=== PATIENT | female | born 1945 | race Caucasian/White ===

== ENCOUNTER 2017-02-22 14:40 | Emergency (ER) | payer MEDICARE, OTHER ==
--- NOTE | ~2017-02-22 | CR156 ---
[facility] A Service of [facility] [place] [facility] RADIOLOGY TEXT RESULTS PATIENT: PAYTON JIMENEZ LOCATION: [facility] : 47 UNIT #: [id number] AGE: [address]: Sharonda Samayoa MD SEX: F ORDER DR: [id number] [facility] [address] [place], [place] [address] [id number] P MR#: [id number] Acc #: [id number] NAME: PAYTON JIMENEZ : 1945 SEX: F STUDY DATE/TIME: 02/22/2017 15:12 UNIT: [facility] ROOM: STUDY DESCRIPTION: CR Humerus Min 2 View Lt Attending Physician: Sharonda Samayoa M.D. Ordering Physician: [facility] MEDICAL IMAGING REPORT This report is preliminary unless electronic signature is present EXAM Left humerus 2 views HISTORY Fell today. Arm pain. FINDINGS 2 views are submitted. Re-demonstrated is a comminuted fracture of the surgical neck and humeral head. The shaft of the humerus and distal humerus are intact. CONCLUSION Comminuted fractures of the humeral head and surgical neck. Dictated by... Jay Lee M.D. THIS IS AN ELECTRONICALLY VERIFIED REPORT Jay Lee M.D. at 02/26/2017 4:50 PM BEATRIS/lidia TD: 02/22/2017 18:34 JOB #: [id number] MEDICAL IMAGING REPORT Page 1 of 1 COPY
--- NOTE | ~2017-02-22 | CR229 ---
[facility] A Service of [facility] & [facility] RADIOLOGY TEXT RESULTS PATIENT: PAYTON JIMENEZ LOCATION: [facility] : 47 UNIT #: [id number] AGE: [address]: Sharonda Samayoa MD SEX: F ORDER DR: [id number] [facility] [address]. [place], [place] [address] [id number] P MR#: [id number] Acc #: [id number] NAME: PAYTON JIMENEZ : 1945 SEX: F STUDY DATE/TIME: 02/22/2017 15:11 UNIT: [facility] ROOM: STUDY DESCRIPTION: CR Shoulder Min 2 View Lt Attending Physician: Sharonda Samayoa M.D. Ordering Physician: [facility] MEDICAL IMAGING REPORT This report is preliminary unless electronic signature is present EXAM Left shoulder HISTORY Fell today with left shoulder pain. FINDINGS 3 views are submitted. The examination shows a comminuted fracture of the surgical neck and humeral head. Fracture passes transversely through the surgical neck. It is impacted into the humeral head. There is a fracture through the greater tuberosity. It is displaced superiorly. There is generalized osteopenia. CONCLUSION Comminuted fracture of the surgical neck and humeral head. Dictated by... Jay Lee M.D. THIS IS AN ELECTRONICALLY VERIFIED REPORT Jay Lee M.D. at 02/26/2017 4:50 PM BEATRIS/poppy TD: 02/22/2017 18:33 JOB #: [id number] MEDICAL IMAGING REPORT Page 1 of 1 COPY
== END 2017-02-22 19:02 | disposition home or self-care (01) ==
LOC: CED 14:40
DX: S42.212A Unspecified displaced fracture of surgical neck of left humerus, initial encounter for closed fracture (principal); S42.202A Unspecified fracture of upper end of left humerus, initial encounter for closed fracture; W01.0XXA Fall on same level from slipping, tripping and stumbling without subsequent striking against object, initial encounter; Y92.9 Unspecified place or not applicable; Z88.8 Allergy status to other drugs, medicaments and biological substances; E11.9 Type 2 diabetes mellitus without complications
CPT/HCPCS: 73030; 73060; 82947; 96372; 99284; J2270

== ENCOUNTER 2017-02-27 12:00 | Inpatient (IN) | payer MEDICARE, OTHER ==
--- NOTE | ~2017-02-27 | CR229 ---
[facility] A Service of [facility] RADIOLOGY TEXT RESULTS PATIENT: PAYTON JIMENEZ LOCATION: [place] [id number] : 47 UNIT #: [id number] AGE: [address]: Jesse Casillas MD SEX: F ORDER DR: [id number] [facility] [address] [place], [place] [address] [id number] I MR#: [id number] Acc #: [id number] NAME: PAYTON JIMENEZ : 1945 SEX: F STUDY DATE/TIME: 02/27/2017 20:28 UNIT: [facility] ROOM: [facility] STUDY DESCRIPTION: CR Shoulder Min 2 View Lt Attending Physician: Jesse Casillas M.D. Ordering Physician: Jesse Casillas M.D. Primary Care Physician: Andrea Villa M.D. MEDICAL IMAGING REPORT This report is preliminary unless electronic signature is present EXAM 3 views of the left shoulder, 02/27/2017 at 20:28 HISTORY Left shoulder pain. Postop shoulder replacement. COMPARISON Left shoulder radiographs, 02/26/2017 FINDINGS Left shoulder replacement changes. No periprosthetic fracture. The shoulder joint appears appropriately aligned. No AC or CC separation. Probable mild left basilar atelectasis. IMPRESSION Satisfactory postoperative appearance status post left shoulder replacement. Dictated by... Ninoska Lopez M.D. THIS IS AN ELECTRONICALLY VERIFIED REPORT Ninoska Lopez M.D. at 02/28/2017 10:06 AM CHARLENE/elina TD: 02/28/2017 08:32 JOB #: [id number] MEDICAL IMAGING REPORT Page 1 of 1 COPY
--- NOTE | ~2017-02-27 | CR72 ---
[facility] A Service of [facility] & [facility] RADIOLOGY TEXT RESULTS PATIENT: PAYTON JIMENEZ LOCATION: [address] : 47 UNIT #: [id number] AGE: [address]: Jesse Casillas MD SEX: F ORDER DR: [id number] [facility] [address] [place], [place] [address] [id number] I MR#: [id number] Acc #: [id number] NAME: PAYTON JIMENEZ : 1945 SEX: F STUDY DATE/TIME: 02/28/2017 17:13 UNIT: [facility] ROOM: [facility] STUDY DESCRIPTION: CR Chest Single View Portable Attending Physician: Jesse Casillas M.D. Ordering Physician: Ed Doctor [id number] [facility] Primary Care Physician: Andrea Villa M.D. MEDICAL IMAGING REPORT This report is preliminary unless electronic signature is present EXAM Portable chest 02/28/2017 COMPARISON None. HISTORY Postop, shortness of breath beginning yesterday. An AP view of the chest is obtained. Cardiac size is normal. There is elevation of the left hemidiaphragm with left basilar atelectasis. Postoperative changes of left shoulder arthroplasty are present. CONCLUSION 1. Mild elevation of the left hemidiaphragm with left basilar atelectasis. 2. Status post left shoulder arthroplasty. Dictated by... Jay Lee M.D. THIS IS AN ELECTRONICALLY VERIFIED REPORT Jay Lee M.D. at 03/01/2017 6:07 PM Max TD: 02/28/2017 23:24 JOB #: [id number] MEDICAL IMAGING REPORT Page 1 of 1 COPY
--- NOTE | ~2017-02-27 | OR ---
Unit #: [id number] #: [id number] Patient: PAYTON KENNEDY [id number] [address] [address] [id number] I MR#: [id number] NAME: PAYTON KENNEDY ROOM: [facility] Date of Procedure: 02/27/2017 Admission Date: 02/27/2017 Surgeon: Jesse Casillas M.D. : 1945 Attending Physician: Jesse Casillas M.D. Primary Care Physician: Andrea Villa M.D. OPERATIVE REPORT PREOPERATIVE DIAGNOSIS Left 3 versus 4-part proximal humerus fracture. POSTOPERATIVE DIAGNOSES 1. Left 3-part proximal humerus fracture. 2. Partial biceps tear. PROCEDURES PERFORMED 1. Left reverse shoulder arthroplasty. 2. Left shoulder biceps tenodesis. MEDICAL RECORDS FIELD TECHNICIAN Elaine Umana APRN, TOMAS. ANESTHESIA General with interscalene nerve block. ESTIMATED BLOOD LOSS 200 mL. COMPLICATIONS None apparent. DRAINS Medium Hemovac x1. IMPLANTS 1. DJO Surgical size 10 cemented AltiVate humeral stem with a 32, neutral humeral socket liner. 2. Size 12 cement restrictor. 3. DJO Surgical P2 baseplate with a 32, -4 glenosphere. INDICATIONS FOR PROCEDURE Ms. Kennedy is a 71-year-old female with a left 3 versus 4-part proximal humerus fracture. The greater tuberosity was comminuted into 2 or 3 fragments. The head segment was quite small and significantly impacted on the shaft. The tuberosity was displaced cephalad beneath the acromion. We discussed operative versus nonoperative treatment options. Given the displacement of her tuberosity, operative intervention was felt to be warranted. We discussed an ORIF versus an an arthroplasty. Given the small rim of bone on the head segment, there is concern about the ability to obtain sufficient fixation of the head. She elected to proceed with Unit #: [id number] #: [id number] Patient: PAYTON KENNEDY ORIF versus reverse. DESCRIPTION OF PROCEDURE The patient was identified in the preoperative holding area. The operative site was marked. A preoperative regional block was performed. Preoperative antibiotics were administered. The patient was brought to the operating room and placed supine on the operating table. General anesthetic was induced. The patient was positioned in the beach-chair position. The left upper extremity was prepped and draped in sterile fashion. A standard deltopectoral approach was performed. The cephalic vein was taken medially with the pectoralis major initially. This was later injured by retractor and was subsequently suture ligated. The subdeltoid space was developed. The fracture was identified. The sutures were placed in the subscapularis and the supra and infraspinatus tendons. Several loose fragments of greater tuberosity were removed. The main or primary tuberosity fragment was again identified and tagged with multiple FiberWire and FiberTape sutures. The lesser tuberosity did remain attach to the head segment. The head segment itself was very small thin fragment of bone. Again, fixation at this point was thought to be compromised and high risk for failure. We therefore elected to proceed with reverse shoulder replacement. The lesser tuberosity was osteotomized off the head. The bone here was extremely soft and fractured off very easily. The head was removed and the posterior aspect of the head was taken for bone graft. The canal was then prepared with a hand reamers and prepared for cementing according to the standard technique. We sized up to a size 12 cement restrictor implant for size 10 stem. Attention was then turned to the glenoid. The glenoid exposure was facilitated by the absence of the humeral head. Retractors were placed and labrum was released. We had an easy exposure to the glenoid. We drilled the centering hole and inserted the reaming tap. This was then reamed to the desired depth and we inserted the baseplate and placed 4 peripheral locking screws. A 32, -4 baseplate was inserted. Attention was turned back to the humerus. The size 10 humeral component was opened and a "black and marie" type cement technique was employed with distal cementing and the proximal bone grafting of the canal. The humeral stem was inserted and was stable and was held in position while the cement was allowed to cure. The humerus was placed in approximately 30 degrees of retroversion. The shoulder was trialed and we selected a 32 neutral humeral socket liner. This was impacted in place. The tuberosities were then repaired back to the stem according to the standard technique with tuberosity to stem sutures and tuberosity to tuberosity sutures. The arm was taken through range of motion. The shoulder was stable. The wound was irrigated with pulsatile lavage and then a subdeltoid drain placed. The wound was closed in a layered fashion with 0 Vicryl, 2-0 Vicryl, and Monocryl. Steri-Strips and sterile dressings were applied. DISPOSITION Stable to the recovery room. Dictated by... Franklyn Navarrete/caitlin Unit #: [id number] #: [id number] Patient: PAYTON KENNEDY TD: 02/28/2017 04:04 JOB #: [id number] OPERATIVE REPORT Page 1 of 1 X Jesse Casillas MD X PROCEDURE OPERATIVE NOTE
--- NOTE | ~2017-02-27 | EKG ---
PATIENT: PAYTON JIMENEZ UNIT #: [id number] Ventricular Rate: 115 BPM Atrial Rate: 115 BPM P-R Interval: 120 ms QRS Duration: 98 ms Q-T Interval: 332 ms QTC Calculation(Bezet): 459 ms P Shanks: 29 degrees Calculated R Shanks: -21 degrees Calculated T Shanks: 21 degrees Diagnosis Line: Sinus tachycardia Diagnosis Line: Otherwise normal ECG Diagnosis Line: No previous ECGs available Diagnosis Line: Confirmed by RYAN CRUZ MD ([id number]) on Diagnosis Line: 02/27/2017 2:05:23 PM INTERPRETING MD: NANCY CHRISTIANSON
--- NOTE | ~2017-02-27 | DS ---
Unit #: [id number] #: [id number] Patient: PAYTON JIMENEZ [id number] [place] [address] [facility] [facility] [place], [place] [address] [id number] I MR#: [id number] NAME: PAYTON JIMENEZ ROOM: [facility] Age: 71 Sex: F Admission Date: 02/27/2017 : 1945 Discharge Date: 03/01/2017 Attending Physician: Jesse Casillas M.D. Primary Care Physician: Andrea Villa M.D. DISCHARGE SUMMARY ADMITTING DIAGNOSIS Left proximal humerus fracture. DISCHARGE DIAGNOSES Left proximal humerus fracture status post left reverse shoulder arthroplasty. PROCEDURES PERFORMED On 02/27/2017 the patient underwent a left reverse shoulder arthroplasty for a left proximal humerus fracture. Please see operative report for further details. BRIEF HISTORY Ms. Jimenez is a 71-year-old female who sustained a 3- versus 4-part left proximal humerus fracture. Dr. Casillas discussed both nonoperative and operative treatment options for the patient in the office. Given the displacement of her tuberosity, he recommended an ORIF of the left proximal humerus fracture versus a left reverse shoulder arthroplasty. The final decision would be made intraoperatively once he was able to further evaluate the fracture. The risks, benefits and alternatives were discussed with the patient. She elected to proceed with surgery on 02/27/2017. HOSPITAL COURSE On the night of surgery, the patient was transferred to the orthopedic unit for postoperative care. Her vital signs remained stable. Postop x-rays of the left shoulder demonstrated that she was status post left reverse shoulder arthroplasty. Hardware remained in correct anatomical alignment. No evidence of loosening or migration. On postop day number 1 the patient was noted to have decreased O2 sats on room air at 84%. She has been placed on 2 liters of oxygen, which brought her O2 sat to 94%. The patient was lethargic but easily arousable. At this time we decided to decrease her pain medication dosage. She was also given an incentive spirometer to use every hour while awake. A portable chest x-ray was obtained, which showed left basilar atelectasis, as well as mild elevation of the hemidiaphragm. The patient was kept on continuous pulse oxygen monitoring, and staff was instructed to wean her oxygen for sats greater than or equal to 92%. She was in no acute distress and did not complain of any shortness of air. Her left upper extremity incision was clean, dry and intact with no surrounding erythema, warmth or hematoma. She had 60 mL of serosanguineous fluid out of her Hemovac drain overnight; thus, it was discontinued in the room today. She was neurovascularly intact in the medial, ulnar and radial nerves. She had Unit #: [id number] #: [id number] Patient: PAYTON JIMENEZ normal sensation to light touch in all 5 digits. She was placed on aspirin and in SCDs for DVT prophylaxis. She remained nonweightbearing of the left upper extremity and in her sling. Physical therapy was consulted to work on getting out of bed, as well as pendulums of the left shoulder, as well as range of motion of the left elbow, wrist and hand. On postop day #2 the patient was awake, alert and oriented x3. She worked with physical therapy to get out of bed, as well as on the assigned exercises. Her O2 sat was improved, ranging from 92% to 94% on room air. She has been diligent about using her incentive spirometer while awake. Other vital signs are stable. She denies any shortness of air in the room. Her left upper extremity remains clean, dry and intact with no surrounding erythema, warmth or hematoma. She is neurovascularly intact in the medial, ulnar and radial nerves. She had normal sensation to light touch in all 5 digits. We will check her hemoglobin and hematocrit levels today. If cleared by physical therapy and she has normal H and H and her oxygen levels remain normal, we will plan to discharge her home later today. CONDITION AT DISCHARGE Stable. DISPOSITION The patient will be discharged home where she has her boyfriend, as well as other family, to help with postoperative care. DISCHARGE MEDICATIONS 1. Cymbalta 30 mg p.o. q.h.s. 2. Cymbalta 60 mg p.o. daily. 3. Metformin 500 mg p.o. daily. 4. Tessalon Perles 100 mg p.o. daily. 5. Lipitor 40 mg p.o. daily. 6. Losartan 100 mg p.o. daily. 7. Aspirin 81 mg p.o. daily. 8. Glipizide 5 mg p.o. daily. 9. Percocet 5/325 mg 1-2 tabs p.o. q.4 hours p.r.n. 10. Patient was sent home with a prescription for Percocet (dispense 65 tablets). DISCHARGE INSTRUCTIONS AND FOLLOWUP 1. The patient will follow up with Dr. Casillas in 2 weeks' time in the office. 2. She will remain nonweightbearing of the left upper extremity and in her sling. She may remove her sling 2 to 3 times per day to perform pendulums, as well as range of motion of the elbow, wrist and hand. 3. She will perform daily dressing changes to the left upper extremity incision. 4. She is not to get her incision wet. She may shower but must keep an occlusive dressing on the incision site. 5. She will continue using her incentive spirometer every hour, 10 times an hour, while awake upon discharge. Dictated by... RAYMOND Franco/jean Unit #: [id number] #: [id number] Patient: PAYTON JIMENEZ TD: 03/04/2017 07:57 JOB #: [id number] DISCHARGE SUMMARY Page 1 of 1 X ALICJA FRAIRE APRN X DISCHARGE SUMMARY
[2017-02-27] MEDS ORDERED: ASPIRIN EC81 M1 PO (12:40)
[2017-02-27] MEDS ORDERED: BENZONATATE PO (12:41)
[2017-02-27] MEDS ORDERED: LIPITOR40 MG PO (12:41)
[2017-02-27] MEDS ORDERED: CYMBALTA30 M1 PO ×2 (12:42→12:43)
[2017-02-27] MEDS ORDERED: DULOXETINE HCL60 MG PO (12:43)
[2017-02-27] MEDS ORDERED: GLUCOTROL XL5 M1 PO (12:44)
[2017-02-27] MEDS ORDERED: HYDROCODON-ACE1 EAC7 PO (12:45)
[2017-02-27] MEDS ORDERED: COZAAR100 MG PO (12:45)
[2017-02-27] MEDS ORDERED: METFORMIN HCL500 M3 PO (12:45)
[2017-02-27 13:04] LABS: HEMATOCRIT 34.9 % (35.0-45.0); HEMOGLOBIN 11.2 gm/dL (12.0-16.0); MEAN CELL VOLUME 90.6 FL (83-96); MEAN CORPUSCULAR HEMOGLOBIN 29.2 PG (28-34); MEAN CORPUSCULAR HGB CONC 32.2 g/dL (30-36); MEAN PLATELET VOLUME 8.7 FL (6.5-11.5); RED BLOOD COUNT 3.85 X10e (3.90-5.30); RED CELL DISTRIBUTION WIDTH 14.4 % (11.0-15.5); WHITE BLOOD COUNT 11.1 X10e3 (4.0-10.5)
[2017-02-27 13:13] LABS: BUN/CREATININE RATIO 16.25; CALCIUM SERUM 8.9 mg/dL (8.4-10.2); CREATININE SERUM 0.8 mg/dL (0.6-1.4); GLOM FILT RATE Estimated 74.8 mL/min (>60)
[2017-03-01 10:58] LABS: HEMATOCRIT 33.4 % (35.0-45.0); HEMOGLOBIN 10.7 gm/dL (12.0-16.0)
[2017-03-01] MEDS ORDERED: PERCOCET5/325 PO (11:34)
== END 2017-03-01 16:35 | disposition home or self-care (01) | DRG 483 ==
LOC: CSUR 12:00 → CPACUOF 13:28 → CSUR 15:00 → CPACUOF 19:15 → C4B 20:45 → CPACUOF 20:45 → C4B 03-01 16:35
PROVIDERS: Nurse Practitioner; Orthopaedic Surgery
PROC: 0RRK00Z Replacement of Left Shoulder Joint with Reverse Ball and Socket Synthetic Substitute, Open Approach (ICD-10-PCS; principal; 2017-02-27 15:00)
DX: S42.202A Unspecified fracture of upper end of left humerus, initial encounter for closed fracture (principal); E11.9 Type 2 diabetes mellitus without complications; I10 Essential (primary) hypertension; W19.XXXA Unspecified fall, initial encounter; R09.02 Hypoxemia; Z79.84 Long term (current) use of oral hypoglycemic drugs; Z90.710 Acquired absence of both cervix and uterus; Z79.82 Long term (current) use of aspirin; Z88.5 Allergy status to narcotic agent
CPT/HCPCS: 71010; 73030; 80048; 82947; 85014; 85018; 85027; 93005; 97110; 97116; 97163; 97530; C1776; G8978-GP; G8979-GP; G8980-GP; J0330; J0690; J1815; J2250; J2270; J2405; J2710; J2795; J3010